=== PATIENT | female | born 1970 | race American Indian/Alaskan Native ===

== ENCOUNTER 2021-09-18 17:11 | Emergency (ER) | payer SELFPAY ==
[2021-09-18] MEDS ORDERED: Ondansetron 4 MG Tab.DIS PO ONE (17:26)
[2021-09-18 17:38] VITALS: BP 124/83; PULSE 114
[2021-09-18 18:15] LABS: CORONAVIRUS COVID-19 NAA NEGATIVE (NEGATIVE); RESPIRATORY SYNCYTIAL VIR NAA NEGATIVE (NEGATIVE)
== END 2021-09-18 19:27 | disposition left against medical advice (07) ==
LOC: DL.ED 17:11
DX: Z53.21 Procedure and treatment not carried out due to patient leaving prior to being seen by health care provider (principal)
CPT/HCPCS: 0241U; A9270

== ENCOUNTER 2023-03-01 13:12 | Emergency (ER) | payer MEDICAID ==
[2023-03-01] MEDS ORDERED: Dexamethasone 4 MG/ML SDV IM ONE (14:54)
[2023-03-01 15:37] VITALS: BP 105/63; PULSE 75
== END 2023-03-01 15:17 | disposition home or self-care (01) ==
LOC: DL.ED 13:12
DX: S39.012A Strain of muscle, fascia and tendon of lower back, initial encounter (principal); S29.012A Strain of muscle and tendon of back wall of thorax, initial encounter; X50.0XXA Overexertion from strenuous movement or load, initial encounter; Y92.009 Unspecified place in unspecified non-institutional (private) residence as the place of occurrence of the external cause
CPT/HCPCS: 72128; 72131; 72192; 96372; 99282; 99283; J1100

== ENCOUNTER 2024-02-12 23:40 | Emergency (ER) | payer MEDICAID, OTHER ==
[2024-02-13] MEDS: Sodium Chloride 0.9% 1,000 ML IV ONE (00:30)
[2024-02-13] MEDS: Famotidine 20 MG/2 ML SDV IVPUSH ONE (00:31)
[2024-02-13] MEDS: Glucagon,Human Recombinant 1 MG Vial IVPUSH ONE (00:33)
[2024-02-13 00:37] LABS: BASOPHILS PERCENT AUTO 1.7 % (0.0-1.0); EOSINOPHILS PERCENT AUTO 4.3 % (1.0-3.0); HEMATOCRIT 42.7 % (37.0-47.0); HEMOGLOBIN 14.3 g/dL (12.0-16.0); MEAN CORPUSCULAR HEMOGLOBIN 31.6 pg (27.0-34.0); MEAN CORPUSCULAR HGB CONC 33.5 g/dL (33.0-35.0); MEAN CORPUSCULAR VOLUME 94.3 fL (80-100); MONOCYTES PERCENT AUTO 8.4 % (2-8); NEUTROPHILS PERCENT AUTO 31.6 % (42.2-75.2); PLATELET COUNT,PLT 252 10^3/uL (150-450); RED BLOOD CELL COUNT 4.53 10^6/uL (4.2-5.4); WHITE BLOOD CELL COUNT,WBC 4.6 10^3/uL (5.0-10.0)
[2024-02-13 00:42] VITALS: BP 122/81; PULSE 86
[2024-02-13 00:48] LABS: A/G RATIO 0.9; ALANINE AMINOTRANSFERASE,ALT 86 U/L (14-59); ALBUMIN 3.8 g/dL (3.4-5.0); ALKALINE PHOSPHATASE 122 U/L (46-116); ANION GAP 17.5 mEq/L (7-13); ASPARTATE AMNIOTRANSFERASE,AST 96 U/L (15-37); BILIRUBIN TOTAL 0.3 mg/dL (0.2-1.0); BLOOD UREA NITROGEN,BUN 11 mg/dL (7-18); BUN/CREATININE RATIO 13.1 (No establ ref range); CALCIUM 8.1 mg/dL (8.5-10.1); CARBON DIOXIDE,CO2 22 mmol/L (21-32); CHLORIDE,CL 108 mmol/L (98-107); CREATININE 0.84 mg/dL (0.55-1.02); ETHANOL BLOOD MEDICAL 236 mg/dL (0); GLUCOSE RANDOM 112 mg/dL (70-99); LIPASE 35 U/L (16-77); MAGNESIUM 2.1 mg/dL (1.8-2.4); POTASSIUM,K 3.5 mmol/L (3.5-5.1); SODIUM,NA 144 mmol/L (136-145)
[2024-02-13 00:52] LABS: ESTIMATED GFR 82 mL/min (>=60)
== END 2024-02-13 01:58 | disposition home or self-care (01) ==
LOC: DL.ED 23:40
DX: K22.4 Dyskinesia of esophagus (principal); Z79.899 Other long term (current) drug therapy; Z86.19 Personal history of other infectious and parasitic diseases
CPT/HCPCS: 36415; 70360; 70490; 80053; 80307; 83690; 83735; 85025; 96374; 96375; 99284; 99285; J1610; J3490; J7030

== ENCOUNTER 2024-06-22 17:41 | Emergency (ER) | payer MEDICAID ==
[2024-06-22 18:03] VITALS: BP 131/84; PULSE 94
[2024-06-22] MEDS: predniSONE 20 MG Tab PO ONE (18:28)
== END 2024-06-22 18:40 | disposition home or self-care (01) ==
LOC: DL.ED 17:41
DX: R21 Rash and other nonspecific skin eruption (principal)
CPT/HCPCS: 99282; J7512